=== PATIENT | male | born 1990 | race Caucasian/White ===

== ENCOUNTER 2019-04-19 13:57 | Emergency (ER) | payer SELFPAY ==
[~2019-04-19] VITALS: Ht 193 cm; Wt 81.8 kg
[2019-04-19 14:01] VITALS: Ht 193 cm; Wt 81.8 kg
[2019-04-19] MEDS ORDERED: VOLTAREN75 MG PO (14:58)
[2019-04-19 15:02] VITALS: BP 118/64
== END 2019-04-19 15:05 | disposition home or self-care (01) ==
LOC: D.ER 13:57
DX: S99.921A Unspecified injury of right foot, initial encounter (principal); X58.XXXA Exposure to other specified factors, initial encounter; Y93.89 Activity, other specified; Y92.89 Other specified places as the place of occurrence of the external cause